=== PATIENT | male | born 1995 | race Caucasian/White ===

== ENCOUNTER 2021-09-05 14:57 | Emergency (ER) | payer OTHER ==
[2021-09-05] MEDS ORDERED: Ketorolac 30 MG/ML SDV IM ONE (15:53)
--- NOTE | 2021-09-05 15:54 | EDM.PDOC ---
ED HPI GENERAL MEDICAL PROBLEM - General Chief Complaint: Upper Extremity Injury/Pain Stated Complaint: LEFT SHOULDER PAIN (FALL) Time Seen by Provider: 09/05/21 15:50 Source of Information: Reports: Patient, RN Notes Reviewed History Limitations: Reports: No Limitations - History of Present Illness INITIAL COMMENTS - FREE TEXT/NARRATIVE: 26-year-old gentleman presents emergency department today following a fall in porch he slipped on the ice landed on his right shoulder and now is experiencing numbness and tingling in his fingertips he can move all his digits can move his shoulder but he is in significant pain, no head injury no loss of consciousness Left Anterior Shoulder Pain Score (Numeric/FACES): 8 - Related Data Allergies Allergy/AdvReac Type Severity Reaction Status Date / Time Sulfa (Sulfonamide Allergy Cannot Verified 09/05/21 16:04 Antibiotics) Remember Past Medical History - Past Health History Medical/Surgical History: Denies Medical/Surgical History Social & Family History - Tobacco Use Tobacco Use Status *Q: Never Tobacco User Review of Systems - Review of Systems Review Of Systems: See Below Respiratory: Reports: No Symptoms Cardiovascular: Reports: No Symptoms Musculoskeletal: Reports: Shoulder Pain Neurological: Reports: Numbness, Tingling ED EXAM, GENERAL - Physical Exam Exam: See Below Free Text/Narrative:: There is no erythema there is no edema noted he does have limited range of motion he can do about 90 degrees abduction before significant pain full range of motion all digits radial pulses +2 sensation is intact Course - Vital Signs Last Recorded V/S: Last Vital Signs Temp 98.3 F 09/05/21 15:43 Pulse 86 09/05/21 15:43 Resp 17 09/05/21 15:43 BP 157/94 H 09/05/21 15:43 Pulse Ox 98 09/05/21 15:43 - Orders/Labs/Meds Orders: Active Orders 24 hr Category Date Time Status Shoulder Comp Rt [CR] Stat Exams 09/05/21 15:53 Taken DME for Discharge [COMM] Per Unit Routine Oth 09/05/21 16:26 Ordered Meds: Medications Discontinued Medications Generic Name Dose Route Start Last Admin Trade Name Freq PRN Reason Stop Dose Admin Ketorolac Tromethamine 30 mg 09/05/21 15:53 Ketorolac 30 Mg/Ml Sdv IM 09/05/21 15:54 ONETIME ONE Departure - Departure Time of Disposition: 16:28 Disposition: Home, Self-Care 01 Condition: Fair Clinical Impression: Shoulder strain Qualifiers: Encounter type: initial encounter Laterality: right Qualified Code(s): S46.911A - Strain of unspecified muscle, fascia and tendon at shoulder and upper arm level, right arm, initial encounter - Discharge Information Instructions: Shoulder Pain, [id number] Referrals: PCP,None [Primary Care Provider] - Forms: ED Department Discharge Additional Instructions: Use ibuprofen for baseline pain control use hydrocodone for breakthrough pain, continue to use the sling as needed for comfort please follow-up with your primary care or orthopedics upon return home call return to the emergency department worsening of symptoms, Sepsis Event Note (ED) - Focused Exam Vital Signs: Vital Signs Temp Pulse Resp BP Pulse Ox 09/05/21 15:43 98.3 F 86 17 157/94 H 98 - My Orders Last 24 Hours: My Active Orders 09/05/21 15:53 Shoulder Comp Rt [CR] Stat 09/05/21 16:26 DME for Discharge [COMM] Per Unit Routine - Assessment/Plan Last 24 Hours: My Active Orders 09/05/21 15:53 Shoulder Comp Rt [CR] Stat 09/05/21 16:26 DME for Discharge [COMM] Per Unit Routine Plan: Assessment Acuity = acute Site and laterality = right shoulder strain Etiology = secondary to a fall Manifestations = pain Location of injury = Home Lab values = shoulder x-ray I did review films myself I cannot appreciate any acute process, the official read from radiology is pending Plan He is provided Toradol in the emergency department placed in sling prescription for hydrocodone 5/325 1 tab p.o. 3 times daily as needed total #10 provided for pain control he will follow-up with his primary care or orthopedics upon return home a CD of his images was provided This note was dictated using [employer] voice recognition software please call with any questions on syntax or grammar.
--- NOTE | 2021-09-06 09:14 | CR ---
Shoulder Comp Lt CLINICAL HISTORY: Fall, pain FINDINGS: There is no acute fracture or dislocation in the left shoulder. Articular surfaces are smooth IMPRESSION: Negative
== END 2021-09-05 16:56 | disposition home or self-care (01) ==
LOC: JP.ED 14:57
DX: S46.912A Strain of unspecified muscle, fascia and tendon at shoulder and upper arm level, left arm, initial encounter (principal); Z88.2 Allergy status to sulfonamides; W00.0XXA Fall on same level due to ice and snow, initial encounter
CPT/HCPCS: 73030; 96372; 99283; J1885